=== PATIENT | female | born 1985 | race Asian ===

== ENCOUNTER 2019-05-20 11:19 | Outpatient (CLI) | payer BC ==
[~2019-05-20] VITALS: Ht 165.1 cm; Wt 83.9 kg
[2019-05-20 11:30] VITALS: BP 114/60; TEMP 98
== END 2019-05-20 12:58 | disposition home or self-care (01) ==
LOC: INF 11:19
DX: D50.9 Iron deficiency anemia, unspecified (principal); R53.83 Other fatigue
CPT/HCPCS: 96365; J1439

== ENCOUNTER 2019-05-27 08:33 | Outpatient (CLI) | payer BC ==
[~2019-05-27] VITALS: Ht 165.1 cm; Wt 86.2 kg
[2019-05-27 08:45] VITALS: BP 108/52; TEMP 98.7
== END 2019-05-27 10:00 | disposition home or self-care (01) ==
LOC: INF 08:33
DX: D50.9 Iron deficiency anemia, unspecified (principal); R53.83 Other fatigue
CPT/HCPCS: 96365; J1439

== ENCOUNTER 2023-07-03 14:45 | Outpatient (CLI) | payer BC ==
[2023-07-03] MEDS ORDERED: IRON SUCROSE IV SCH (15:15)
[2023-07-03] MEDS ORDERED: SOD CHLORIDE 0.9% IV SCH (15:15)
== END 2023-07-03 23:53 | disposition home or self-care (01) ==
LOC: INF 14:45
PROVIDERS: ATTEND Nurse Practitioner Family
DX: D50.8 Other iron deficiency anemias (principal)
CPT/HCPCS: 96365; J1756

== ENCOUNTER 2023-07-07 09:46 | Outpatient (CLI) | payer BC ==
[~2023-07-07] VITALS: Ht 165.1 cm; Wt 94.8 kg
[2023-07-07] MEDS ORDERED: IRON SUCROSE IV ONE (10:15)
[2023-07-07] MEDS ORDERED: SOD CHLORIDE 0.9% IV ONE (10:15)
== END 2023-07-07 22:21 | disposition home or self-care (01) ==
LOC: INF 09:46
PROVIDERS: ATTEND Nurse Practitioner Family
DX: D50.8 Other iron deficiency anemias (principal)
CPT/HCPCS: 96365; J1756